=== PATIENT | female | born 1985 | race American Indian/Alaskan Native ===

== ENCOUNTER 2022-03-19 14:46 | Emergency (ER) | payer SELFPAY ==
[2022-03-19 18:24] LABS: HCG Qualitative,Urine Negative (Negative)
[2022-03-19 18:34] LABS: Mucus,Urine 3+ /HPF
[2022-03-19 18:52] LABS: Color,Urine Straw (Yellow)
[2022-03-19] MEDS ORDERED: KETOROLAC 30 MG/1 ML INJ IM ONE (20:02)
[2022-03-19] MEDS ORDERED: HYDROcodone/ACETAMINOPHEN 5-325 MG TAB PO ONE (20:02)
[2022-03-19] MEDS ORDERED: LIDOCAINE-MPF (1%) 10 MG/1 ML VIAL 5 ML INFILTRATI ONE (20:53)
--- NOTE | 2022-03-19 20:58 | Emergency Department Report ---
ED Female HPI - General Chief complaint: Urogenital-Female Stated complaint: RT EYE PAIN/HEADACHE/LOWER BACK PAIN Time Seen by Provider: 03/19/22 17:45 Source: patient Mode of arrival: Ambulatory Limitations: No Limitations - History of Present Illness Initial comments: 36-year-old female presenting with UTI. Patient reports pain in her right flank suprapubic area restarted a few days ago. Symptoms associated with burning frequency, states is also similar to her previous UTI episodes. Last UTI was in December in which she completed all antibiotics. She denies fever nausea vomiting, she denies hematuria, she denies abdominal pain, she denies any fall or injury, no chest pain, no weakness, dizziness, no vision changes. She denies being . Last menstrual period was few days ago MD Complaint: dysuria -: Gradual, days(s) Radiation: R flank Severity: moderate Severity scale (0 -10): 9 Quality: sharp, stabbing, aching Consistency: intermittent Improves with: none Worsens with: none Are you Now?: No Associated Symptoms: abdominal pain, dysuria. denies: vaginal bleeding, nausea/vomiting, fever/chills, headaches, loss of appetite, hematuria, rash, shortness of breath - Related Data Previous Rx's Medication Instructions Recorded Last Taken Type Ketorolac [Toradol] 10 mg PO Q8H PRN #12 03/19/22 Unknown Rx Phenazopyridine [Pyridium] 200 mg PO BID #6 tab 03/19/22 Unknown Rx cephALEXin [Keflex] 500 mg PO Q12HR #14 cap 03/19/22 Unknown Rx Allergies Allergy/AdvReac Type Severity Reaction Status Date / Time No Known Allergies Allergy Verified 03/19/22 17:08 ED Review of Systems ROS: Stated complaint: RT EYE PAIN/HEADACHE/LOWER BACK PAIN Other details as noted in HPI Eyes: as per HPI ENT: as per HPI Respiratory: denies: cough, orthopnea Cardiovascular: denies: chest pain Endocrine: denies: intolerance to cold, intolerance to heat Gastrointestinal: denies: abdominal pain, nausea, vomiting, diarrhea Genitourinary: urgency, dysuria. denies: frequency, hematuria, discharge Musculoskeletal: back pain Skin: denies: rash, lesions Neurological: denies: headache, weakness, numbness, paresthesias Psychiatric: denies: homicidal thoughts, suicidal thoughts ED Past Medical Hx - Past Medical History Previous Medical History?: Yes - Medications Home Medications: Home Medications Medication Instructions Recorded Confirmed Last Taken Type Ketorolac [Toradol] 10 mg PO Q8H PRN #12 03/19/22 Unknown Rx Phenazopyridine [Pyridium] 200 mg PO BID #6 tab 03/19/22 Unknown Rx cephALEXin [Keflex] 500 mg PO Q12HR #14 cap 03/19/22 Unknown Rx ED Physical Exam - General Limitations: No Limitations General appearance: alert, in no apparent distress - Head Head exam: Present: atraumatic - Eye Eye exam: Present: normal appearance, PERRL Pupils: Present: normal accommodation - ENT ENT exam: Present: normal exam, normal orophraynx - Neck Neck exam: Present: normal inspection. Absent: tenderness - Respiratory Respiratory exam: Present: normal lung sounds bilaterally. Absent: respiratory distress, wheezes, chest wall tenderness - Cardiovascular Cardiovascular Exam: Present: regular rate, normal rhythm - GI/Abdominal GI/Abdominal exam: Present: soft. Absent: distended, tenderness, guarding - Extremities Exam Extremities exam: Present: normal inspection, full ROM, normal capillary refill - Back Exam Back exam: Present: normal inspection, full ROM, tenderness, CVA tenderness (R). Absent: CVA tenderness (L), muscle spasm - Neurological Exam Neurological exam: Present: alert, oriented X3, CN II-XII intact, normal gait - Psychiatric Psychiatric exam: Present: normal affect, normal mood. Absent: depressed, agitated - Skin Skin exam: Present: warm, dry, intact, normal color. Absent: cyanosis, diaphoretic, erythema ED Course Vital Signs 03/19/22 17:06 Temperature 98.6 F Pulse Rate 89 Respiratory 14 Rate Blood Pressure 154/96 [Right] O2 Sat by Pulse 98 Oximetry ED Medical Decision Making - Medical Decision Making 36-year-old female presenting with UTI. Patient reports pain in her right flank suprapubic area restarted a few days ago. Symptoms associated with burning frequency, states is also similar to her previous UTI episodes. Last UTI was in December in which she completed all antibiotics. She denies fever nausea vomiting, she denies hematuria, she denies abdominal pain, she denies any fall or injury, no chest pain, no weakness, dizziness, no vision changes. She denies being . Last menstrual period was few days ago Urine culture antibiotics, [facility] referral supportive therapy. Patient had a UTI few months ago which she was treated with antibiotics, no culture results at this time. We will treat with ceftriaxone pending culture Patient remained stable nontoxic-appearing, afebrile, ambulating steadily without assistance. Gone over ED findings with patient as well as plan for follow-up. Also discussed return precautions with patient, all questions and concerns addressed. Patient is stable to be discharged follow-up outpatient. Audio voice dictation device used, hence the chart might contain some dictation errors, mispronunciations, wrong spelling and wrong verbiage. Critical care attestation.: If time is entered above; I have spent that time in minutes in the direct care of this critically ill patient, excluding procedure time. ED Disposition Clinical Impression: Flank pain, UTI (urinary tract infection) Disposition: 01 HOME / SELF CARE / HOMELESS Is pt being admited?: No Does the pt Need Aspirin: No Condition: Stable Instructions: Flank Pain, Adult, [id number], Urinary Tract Infection, Adult Prescriptions: cephALEXin [Keflex] 500 mg PO Q12HR #14 cap Phenazopyridine [Pyridium] 200 mg PO BID #6 tab Ketorolac [Toradol] 10 mg PO Q8H PRN #12 PRN Reason: Pain Forms: Work/School Release Form(ED)
[2022-03-19 23:21] VITALS: BP 156/87
== END 2022-03-19 23:21 | disposition home or self-care (01) ==
LOC: ED 14:46
DX: N39.0 Urinary tract infection, site not specified (principal); R10.31 Right lower quadrant pain; Z98.890 Other specified postprocedural states; Z79.899 Other long term (current) drug therapy
CPT/HCPCS: 81001; 81025; 96372; 99283; J0696; J1885; J3490